=== PATIENT | female | born 1990 | race Caucasian/White ===

== ENCOUNTER 2024-08-09 14:30 | Outpatient (RCR) | payer MEDICAID, SELFPAY ==
--- NOTE | 2024-08-02 08:45 | PT.OIERPT ---
PT OP Initial Eval Patient Information Outpatient Physical Therapy Treatment Date: 08/02/24 Visit Reasons: BACK PAIN Medical Diagnosis: M51.36 Treatment Dx #1: LBP with L LE radiculopathy Start of Care: 08/02/24 Date of Onset: 4 yrs ago Smoking Status Smoking Status: Never smoker Initial Assessment Subjective: Pt is 33 yr old female who reports LBP that runs down the L LE worse at night that interrupts sleep and with bending and lifting her 2 yr old that weighs 36 lbs. PMH: none reported Imaging: MRI in EMR: L5-S1, L4-L5 2 mm central lumbar disc bulges Pt goal: for the pain to go away Objective: ? Trunk ArOM: ? B SB 50% of normal with pain ? Extension: 20% with pain around L4-5, L5-S1 ? Flexion: 1 from floor without LBP ? B rotation: 70% B ? TTP: moderate paraspinals L5-S1 worse on L side ? Neuro: L SLR: positive Assessment: Pt presents with trunk flexion sensitivity and overlying myofascial pain ? and TTP around L5-S1 consistent with ? lower lumbar disc bulge(s) with radiculopathy. Pt requires skilled therapy in order to decrease ? pain and improve sitting/standing tolerance and has fair rehab potential. Eval ?followed by HEP printout. 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 Ind with HEP ? 2. Improved sitting/standing tolerance to 30 minutes with <=4/10 LBP ? 3. Decreased lower paraspinal TTP from mod to min 4. Improved HH chore tolerance to at least 30 minutes with <=3/10 LBP and no ?increase in LE ssx ? Treatment Plan ?1. Manual therapy ? 2. Therex ? 3. Modalities as indicated, moist heat, ice, estim, mechanical traction Frequency and Duration: 1-2x a week for 12 visits plus evaluation Certification Dates: 08/02/24 to 10/29/24 Procedure Charges OP PT Eval Mod Complex 30 minutes: Yes
--- NOTE | 2024-08-09 16:16 | PT.ODAYNRPT ---
PT Outpatient Daily Note OP Daily Note Outpatient Physical Therapy Treatment Date: 08/09/24 Visit Reasons: BACK PAIN Subjective: Pt c/o low back pain, mention she has other comorbidities that she thinks might contribute to her symtpoms. Objective: Please see flow sheet for ther ex list. Assessment: Pt instructed on repeated lumbar extension in standing exercise, pt replicated with good technique given for HEP. Plan: Continue with POC. Length of Time (minutes) of Treatment: 30 Minutes Procedure Charges Therapeutic Exercise 30 minutes: Yes
== END 2024-08-09 23:59 | disposition home or self-care (01) ==
LOC: CPTX 14:30
PROVIDERS: PCP Nurse Practitioner Family; Referring Provider Nurse Practitioner Family; Visit Provider Nurse Practitioner Family
DX: M54.16 Radiculopathy, lumbar region (principal)
CPT/HCPCS: 97110; 97162

== ENCOUNTER 2024-09-02 13:07 | Outpatient (RCR) | payer MEDICAID, SELFPAY ==
--- NOTE | 2024-09-02 13:29 | PT.ODAYNRPT ---
PT Outpatient Daily Note OP Daily Note Outpatient Physical Therapy Treatment Date: 09/02/24 Visit Reasons: BACK PAIN Subjective: Less LBP since starting therapy Objective: See F/S for therex Assessment: Good response to trunk extension progression to relieve LBP Plan: Continue per POC Length of Time (minutes) of Treatment: 30 Minutes Procedure Charges Therapeutic Exercise 30 minutes: Yes
== END 2024-09-06 23:59 | disposition home or self-care (01) ==
LOC: CPTX 13:07
PROVIDERS: PCP Nurse Practitioner Family; Referring Provider Nurse Practitioner Family; Visit Provider Nurse Practitioner Family
DX: M54.16 Radiculopathy, lumbar region (principal)
CPT/HCPCS: 97110

== ENCOUNTER → 2024-12-16 | Outpatient (CLI) | payer MEDICAID, SELFPAY ==
--- NOTE | 2024-12-16 10:13 | XR_ITS ---
Examination: Knee, left 3 views Technique: Knee AP, lateral, oblique 3 views, standing Date and time of exam: December 16, 2024 1034 hours INDICATIONS: Left knee pain and swelling beginning 4 years ago. FINDINGS: No fracture or dislocation No arthritic change. No knee effusion IMPRESSION: Negative for osseous abnormality
== END | disposition home or self-care (01) ==
LOC: CDIM 10:02
PROVIDERS: PCP Nurse Practitioner Family; Referring Provider Chiropractor; Visit Provider Chiropractor
DX: M25.562 Pain in left knee (principal)
CPT/HCPCS: 73562

== ENCOUNTER → 2025-01-28 | Outpatient (CLI) | payer MEDICAID, SELFPAY ==
--- NOTE | 2025-01-28 15:00 | XR_ITS ---
Examination: MRI cervical spine without intravenous contrast Date and time of exam: January 28, 2025 1412 hours INDICATIONS: Low back pain for years radiating to the legs numbness in the legs, neck pain radiating to the arms numbness in the arms Technique: Multiple axial and sagittal sections of the cervical spine to been obtained. T2 weighted sagittal sections, TR 3, 270, TE 117 T1-weighted sagittal sections, TR 500, TE 11 T1-weighted axial sections, TR 607, TE 12, axial sections TR 18, TE 27 and T2 weighted transverse sections, TR 3920, TE 122. Findings: Adequate alignment cervical vertebral bodies No cervical fracture. Intact odontoid. Diffuse cervical disc desiccation. No localized enlargement cervical cord. C2-C3 no disc protrusion C3-C4 no disc protrusion C4-C5 no disc protrusion C5-C6 3 mm right paracentral osteophyte disc complex C6-C7 no disc protrusion C7-T1 no disc protrusion IMPRESSION: C5-C6 3 mm right paracentral osteophyte disc complex
--- NOTE | 2025-01-28 15:30 | XR_ITS ---
Examination: MRI lumbar spine without contrast Date and time of exam: January 28, 2025 1612 hours Comparison March 09, 2024 INDICATIONS: Low back pain for years radiating down the left leg Technique: Multiple MRI axial and sagittal sections lumbar spine. Sagittal T2-weighted images, TR 3500, TE 118 T1 weighted transverse sections, TR 688 T8.5, T2-weighted sagittal sections T1 weighted sagittal sections TR 621, TE 30 T2 axial sections, TR 4, 190, TE 84. Findings: Adequate alignment lumbar vertebral bodies No lumbar fracture Normal marrow signal lumbar vertebral bodies No spondylolisthesis L5-S1 no disc protrusion L4-L5 2 mm central lumbar disc bulges L3-L4 no disc protrusion L2-L3 no disc protrusion L1-L2 no disc protrusion IMPRESSION: L4-L5 2 mm central lumbar disc bulge
== END | disposition home or self-care (01) ==
PROVIDERS: PCP Nurse Practitioner Family; Referring Provider Nurse Practitioner Family; Visit Provider Nurse Practitioner Family
DX: M54.17 Radiculopathy, lumbosacral region (principal); M51.369 Other intervertebral disc degeneration, lumbar region without mention of lumbar back pain or lower extremity pain; M25.78 Osteophyte, vertebrae
CPT/HCPCS: 72141; 72148

== ENCOUNTER → 2025-01-29 | Outpatient (CLI) | payer MEDICAID, SELFPAY ==
--- NOTE | 2025-01-29 15:00 | XR_ITS ---
Examination: MRI thoracic spine without contrast. Date and time of exam: January 29, 2025 1526 hours INDICATIONS: Back pain for years Technique: Multiple sagittal and axial images of the thoracic spine have been obtained. T1 weighted localizer, sagittal T2 weighted images, TR 30-50, TE 148, T1 weighted sagittal images, TR 650, TE 14, T2-weighted transverse images, TR 6770, TE 142 Findings: Adequate alignment thoracic vertebral bodies Mild disc narrowing T5-T6, T6-T7 with, T5-T6 2 mm right paracentral disc bulge T6-T7 2 mm left paracentral disc bulge No impingement upon the thoracic cord No localized enlargement thoracic cord Impression: T5 C6 to 9 mm right paracentral disc bulge T6-T7 2 mm left paracentral disc bulge No significant impingement upon the thoracic cord
--- NOTE | 2025-01-29 15:30 | XR_ITS ---
Exam: MRI knee without contrast, left Date and time of exam: January 29, 2025 1555 hours INDICATIONS: Left knee swelling and pain beginning 4 months ago, unable to extend the knee Technique: Multiple axial, coronal, and sagittal sections on the knee have been obtained. T2-Weighted sagittal, fat-suppressed images, TR 3,500, TE 62, T2 weighted coronal fat-saturated images, TR 3,500, TE 62 Proton density sagittal sections, TR 1800, TE 31. T-1 weighted coronal images, TR 524, TE 13.0 Findings: Medial meniscus anterior horn intact. Medial meniscus, body meniscocapsular separation body of the medial meniscus. Posterior horn medial meniscus intact. Lateral meniscus anterior horn is intact Lateral meniscus, body is intact Posterior horn lateral meniscus is intact Anterior cruciate ligament moderate to high-grade sprain. Posterior cruciate ligament appears intact. Knee effusion is small. Quadriceps and patellar tendons appear intact. There is no evidence of tendinosis. Inflammatory change or fracture of Hoffa's fat pad is not seen. Medial patellar facet demonstrates mild thinning. Lateral patellar facet cartilage demonstrates mild thinning. Trochlear cartilage demonstrates mild thinning. Marrow signal adequate. Medial collateral ligament appears intact. Illiotibial band and fibular collateral ligament are intact. Biceps femoris tendons appear intact. Medial femoral condylar articular cartilage demonstrates mild thinning. Lateral femoral condylar articular cartilage demonstratesmild thinning. Tibial plateau cartilage demonstrates mild thinning. Impression: Meniscocapsular separation body of the medial meniscus Moderate to high-grade sprain anterior cruciate ligament
== END | disposition home or self-care (01) ==
PROVIDERS: PCP Nurse Practitioner Family; Referring Provider Nurse Practitioner Family; Visit Provider Nurse Practitioner Family
DX: M51.34 Other intervertebral disc degeneration, thoracic region (principal); M50.33 Other cervical disc degeneration, cervicothoracic region; S83.195A Other dislocation of left knee, initial encounter; S83.512A Sprain of anterior cruciate ligament of left knee, initial encounter; X58.XXXA Exposure to other specified factors, initial encounter
CPT/HCPCS: 72146; 73721

== ENCOUNTER 2025-04-25 06:50 | Day surgery (SDC) | payer MEDICAID, SELFPAY ==
[2025-04-24 10:31] VITALS: BMI 29.3
[2025-04-24 12:09] LABS: Basophils # (Auto) 0.0 Thou/mm3 (0.0-0.2); Basophils % (Auto) 1 % (0-2.5); Eosinophils # (Auto) 0.1 Thou/mm3 (0.0-0.5); Eosinophils % (Auto) 2 % (0-10); Hematocrit 34.5 % (36.0-46.0); Hemoglobin 11.4 g/dL (12.0-16.0); Immature Granulocytes Auto 0.01 Thou/mm3 (0.00-0.00); Lymphocytes # (Auto) 2.2 Thou/mm3 (1.0-4.8); Lymphocytes % (Auto) 36 % (10-50); Mean Corpuscular HGB Conc 33.0 g/dl (31.0-37.0); Mean Corpuscular Hemoglobin 25.6 pg (25.0-35.0); Mean Corpuscular Volume 77 fL (80-100); Monocytes # (Auto) 0.5 Thou/mm3 (0.0-0.8); Monocytes % (Auto) 9 % (0-12); Neutrophils # (Auto) 3.1 Thou/mm3 (1.8-7.7); Neutrophils % (Auto) 52 % (37-80); Nucleated Red Blood Cell # 0.00 Thou/mm3 (0.00-0.00); Nucleated Red Blood Cell % 0 /100 WBC (0); Platelet Count 281 Thou/mm3 (140-440); RDW Standard Deviation 41.1 fL (36.4-46.3); Red Blood Count 4.46 Miln/mm3 (4.00-5.20); White Blood Count 6.0 Thou/mm3 (3.6-11.0)
[2025-04-24 12:19] LABS: Anion Gap 11 (7-16); BUN/Creatinine Ratio 15 Ratio (12-20); Blood Urea Nitrogen 9 mg/dL (9-23); Calcium 9.1 mg/dL (8.3-10.6); Carbon Dioxide 23.7 mMol/L (20.0-31.0); Chloride 106 mMol/L (98-107); Creatinine (Component) 0.6 mg/dL (0.6-1.3); Estimated Creatinine Clearance 136.8 mL/min (>60); Glucose 97 mg/dL (74-106); INR 0.9 (0.9-1.3); Osmolality,Calculated 279 (275-295); Partial Thromboplastin Time 22.8 Seconds (22.0-36.0); Potassium 4.0 mMol/L (3.4-5.1); Prothrombin Time 9.9 Seconds (9.0-12.2); Sodium 141 mMol/L (136-145); eGFR > 60 See Note
--- NOTE | 2025-04-24 14:45 | SUR.PREOP ---
Pt's father and ride notified to bring pt at 0700 tomorrow for surgery. Pt did not answered.
[2025-04-25] VITALS (9 sets, daily range): BP systolic 103–127; BP diastolic 50–78; PULSE 73–88; RESP 13–20; TEMP 36.1–37; O2SAT 98–100; BMI 29.6
--- NOTE | 2025-04-25 07:24 | SUR.PREOP ---
Patient expressed gratitude for prayer before their procedure.
[2025-04-25] MEDS: RINGERS LACTATED 1000 ML 1,000 ML 20 ML IV (07:40)
--- NOTE | 2025-04-25 10:35 | SUR.PHASEI ---
1035: Pt. arrived with oral airway in place, vitals stable, breathing unlabored, no signs of distress, bilateral dorsalis pedis pulses strong and regular, cap refill to bilateral feet less than 3 seconds, dressing to left knee CDI, no active bleed noted, report received from MD Rodriguez and Tanya KRUEGER.
--- NOTE | 2025-04-25 10:44 | PD.SUROPNT ---
Date of Procedure 04/25/25 Pre Op Diagnosis 1. Torn medial meniscus left knee joint 2-4 lateral meniscus 3 DJD patellofemoral compartment 4 synovitis with medial plica Post Op Diagnosis Same Procedure 1. Partial medial meniscectomy 2. Partial lateral meniscectomy 3. Chondroplasty 4. Partial synovectomy including excision plica Findings Refer dictation Procedure Description The patient was given general endotracheal anesthesia. Once satisfactory anesthesia was achieved, tourniquet was placed on left upper thigh. Following that the part was thoroughly prepped and draped. After using Esmarch the tourniquet pressure was raised to 350 mmHg. A skin incision was made proximal to lateral tibial plateau and arthroscope was introduced in the usual fashion. Another a skin incision was made in suprapatellar pouch area and outlet was established. The findings were noted as below. In suprapatellar pouch area significant synovial tissue inflammation was present. Medial plica was present as well. The undersurface of patella showed grade 3 chondromalacia. The anterior femoral condyle showed grade 3 chondromalacia. Soft tissue impingement was present. The patellar tracking was checked and found to be good. The medial compartment showed grade 2/3 chondromalacia for medial tibial plateau and medial femoral condyle. The medial meniscus showed degeneration and tear of the anterior horn. Another skin incision was made proximal to medial tibial plateau and a probe was introduced and findings were confirmed. The anterior cruciate ligament was intact. The anterior drawer test was performed and found to be good. The lateral compartment showed intact lateral femoral condyle and tibial plateau. Lateral meniscus showed degeneration of the body and anterior horn. A shaver was introduced and shaving of the anterior horn of medial meniscus was performed. Soft tissue impingement was shaved off. Chondroplasty of the medial femoral condyle and medial tibial plateau was performed. The shaving of the body and anterior horn of lateral meniscus was done. The chondroplasty of the patella and and anterior femoral condyle was performed. The soft tissue impingement was shaved off. A partial synovectomy including excision of plica was performed. Copious amount of irrigation was used to irrigate the knee joint. All the debris were removed. 3-0 Prolene was used to close the wound. About 20 mL of quarter percent Marcaine along with 10 mg of Duramorph was injected. Patient tolerated procedure well. Estimated blood loss was about 1 mL. Prognosis in this case is fair to good. Patient was taken to the recovery room in good condition. Anesthesia GETA Pathology / specimen None Estimated Blood Loss 1 Surgeon Ahmet Staley MD Surgical Staff Operation Date: 04/25/25 09:15 Case Staff Anesthesiologist: Garfield Rodriguez
--- NOTE | 2025-04-25 11:00 | ESHP_ITS ---
RE: LOU ALBRIGHT : 1990 DATE OF ADMISSION: 04/25/2025 Patient came to my office on 04/24/2025 for detailed pre-op history and physical examination. HISTORY OF PRESENTING COMPLAINT: Patient presented to me with a history of pain, swelling, clicking and locking of the left knee joint. Pain is quite bad. Intensity of pain is 6-7 out of 10. Unable to sleep. Quality of life and activity of daily living is affected. PAST MEDICAL HISTORY: No history of diabetes mellitus, high blood pressure, asthma, seizures, chest pain. PAST SURGICAL HISTORY: Nil. DRUG HISTORY: Pain medication on and off. ALLERGIES: TO PENICILLIN. FAMILY HISTORY AND SOCIAL HISTORY: Patient denies smoking, drinking and is not working at this point. PHYSICAL EXAMINATION: General: Normal built lady. Vital Sign: Pulse 88 per minute, blood pressure 128/86. Neck: Soft, supple. No mass felt. Trachea is centrally placed. Cardiovascular System: First and second heart sound normal. No murmur heard. Respiratory System: Bilateral vesicular breath sounds. Chest clear. Abdomen: Soft. No mass felt. Bowel sounds present. Breast Examination. Not indicated in this case. Patient is advised to see her family physician for regular examination. Left Knee Examination: Revealed 1+ swelling and 2+ tenderness. Active range of motion 0 to 120 degrees of flexion. The alignment is neutral. Masoud's test is positive. Drawer test, Manjeet test negative. MRI scan confirmed torn meniscus, DJD at patellofemoral joint and also synovitis with plica. ASSESSMENT: Patient is symptomatic and quality of life and activity of daily living is affected, hence left knee arthroscopy was discussed and advised. Risks with anesthesia was explained and that includes but not limited to reaction to anesthetic agents, cardiac arrest, rarely it might be fatal. Risks with the operation includes infection and if that happens patient may need further surgical procedure. Other risks include delayed healing, wound dehiscence, etc. No guarantee is given regarding outcome of the procedure and/or relief of symptoms. Detailed discussion took place. Patient wanted to proceed with surgery. Surgery booked for 04/25/2025 in [facility]. DT: 10:51:25 TT: 10:58:00 Ref: [id number] - TID: [id number]
[2025-04-25] MEDS: MORPHINE SULF INJ 4 MG/ML VIAL 3 MG IV ×2 (11:05→11:26)
[2025-04-25] MEDS: ONDANSETRON INJ 2 MG/ML INJ 2 ML 4 MG IVP (11:26)
--- NOTE | 2025-04-25 11:45 | SUR.PHASEII ---
1145: Pt. AAOx4, vitals stable, breathing unlabored, no complaint of pain or nausea, dressing to left leg CDI, no active bleed noted, pt. tolerated sips of water well, pt. ambulated to wheelchair with steady gait and no assist, no complications. Gave discharge instructions to the pt. and her ride, both verbalized understanding and had no further questions. Pt. left with all personal belongings.
== END 2025-04-25 11:45 | disposition home or self-care (01) ==
PROVIDERS: PCP Nurse Practitioner Family; Referring Provider Orthopaedic Surgery; Visit Provider Orthopaedic Surgery
PROC: (CPT 29870; principal; 2025-04-25 09:15)
DX: S83.242A Other tear of medial meniscus, current injury, left knee, initial encounter (principal); M26.81 Anterior soft tissue impingement; M23.342 Other meniscus derangements, anterior horn of lateral meniscus, left knee; M65.862 Other synovitis and tenosynovitis, left lower leg; M17.12 Unilateral primary osteoarthritis, left knee; M22.42 Chondromalacia patellae, left knee; M67.52 Plica syndrome, left knee
CPT/HCPCS: 29880; 36415; 80048; 85025; 85610; 85730; A4217; A4649; J0131; J1100; J1885; J2250; J2270; J2405; J2704; J3010; J3373; J3490; J7120

== ENCOUNTER 2025-06-04 08:00 | Outpatient (RCR) | payer MEDICAID, SELFPAY ==
--- NOTE | 2025-05-22 09:50 | PT.OIERPT ---
PT OP Initial Eval Patient Information Outpatient Physical Therapy Treatment Date: 05/22/25 Visit Reasons: left knee pain Medical Diagnosis: Left Knee Pain Treatment Dx #1: Left Knee Pain Start of Care: 05/22/25 Date of Onset: 04/25/25 Smoking Status Smoking Status: Never smoker Initial Assessment Subjective: Pt is a 34 y/o female s/p left knee arthroscopic surgery 04/25/25. Pt still has knee pain (7/10) with activities. Pt has limitation with walking, standing, chores, self care, cooking, cleaning, and performing recreational activities. Objective: Left Knee AROM: -8 deg to 120 deg with pain Left Knee MMTs: grossly 3+/5 Left Hip MMTs: grossly 3/5 SLS: NT Knee Cap Mobility: hypomobile in all plane Assessment: Pt demonstrate left knee pain with mobility deficits s/p knee surgery leading to difficulty with ADLs. Pt will benefit from physical therapy to increase ROM, strength, and work on ambulation. 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 1) Increase left knee AROM WNL in 8 wks to be able to perform chores 2) Decrease knee pain to 2/10 in 8 wks to be able to stand more than 30 mins 3) Increase left knee MMTs grossly to 4/5 in 8 wks to be able to perform squatting activities 4) Increase left hip MMTs grossly to 4-/5 in 8 wks to be able to walk more than 30 mins 5) Increase SLS to 20 sec in 8 wks to be able to perform balance activities 6) Indep with HEP Treatment Plan 1) Manual Therapy 2) Therapeutic Activities 3) Therapeutic Exercises 4) Modalities (ice, heat) 5) Balance Training 6) Gait Training Frequency and Duration: 2 x wk for 8 wks Certification Dates: 05/22/25 to 08/22/25 Procedure Charges OP PT Eval Mod Complex 30 minutes: Yes
--- NOTE | 2025-05-28 08:58 | PT.ODAYNRPT ---
PT Outpatient Daily Note OP Daily Note Outpatient Physical Therapy Treatment Date: 05/28/25 Visit Reasons: left knee pain Subjective: Pt's knee still swollen and painful with prolonged standing or walking. Objective: Left Knee Flexion AAROM: 128 deg Assessment: Pt demonstrate improvement with knee flexion AAROM with less pain reported. Pt had difficulty completing SLB exercise due to pain Plan: Continue with PT Length of Time (minutes) of Treatment: 30 Minutes Procedure Charges Therapeutic Exercise 30 minutes: Yes
--- NOTE | 2025-05-30 09:26 | PT.ODAYNRPT ---
PT Outpatient Daily Note OP Daily Note Outpatient Physical Therapy Treatment Date: 05/30/25 Visit Reasons: left knee pain Subjective: Pt's knee continues to swell. Pt mentioned she can walk better now. Objective: Please see flow chart for list of ther ex performed Assessment: progressing with knee flexion AROM with less pain Plan: Continue with PT Length of Time (minutes) of Treatment: 30 Minutes Procedure Charges Therapeutic Exercise 30 minutes: Yes
--- NOTE | 2025-06-02 11:45 | PT.ODAYNRPT ---
PT Outpatient Daily Note OP Daily Note Outpatient Physical Therapy Treatment Date: 06/02/25 Visit Reasons: left knee pain Subjective: Pt's knee feels stiff. Pt still notice pain underneath the knee cap. Objective: Please see flow chart for list of ther ex performed Assessment: progressing with knee flexion AROM with less pain reported during heelslide. Plan: Continue with PT Length of Time (minutes) of Treatment: 30 Minutes Procedure Charges Therapeutic Exercise 30 minutes: Yes
--- NOTE | 2025-06-04 08:58 | PTNOTE_ITS ---
PT Outpatient Daily Note OP Daily Note Outpatient Physical Therapy Treatment Date: 06/04/25 Visit Reasons: left knee pain Subjective: Pt's knee is slowly feeling better. Pt notice a little stiffness this morning. Objective: Please see flow chart for list of ther ex performed Assessment: progressing to more closed chain due to less reported pain. Pt further demonst rate progression with knee flexion AROM with heelslide and no longer require strap to increase ROM Plan: Continue with PT Length of Time (minutes) of Treatment: 30 Minutes Procedure Charges Therapeutic Exercise 30 minutes: Yes
== END 2025-06-08 23:59 | disposition home or self-care (01) ==
LOC: CPTX 08:00
PROVIDERS: PCP Orthopaedic Surgery; Referring Provider Orthopaedic Surgery; Visit Provider Orthopaedic Surgery
DX: M25.562 Pain in left knee (principal); R26.2 Difficulty in walking, not elsewhere classified; Z98.890 Other specified postprocedural states
CPT/HCPCS: 97110; 97162

== ENCOUNTER 2025-07-07 08:30 | Outpatient (RCR) | payer MEDICAID, SELFPAY ==
--- NOTE | 2025-06-10 11:26 | PT.ODAYNRPT ---
PT Outpatient Daily Note OP Daily Note Outpatient Physical Therapy Treatment Date: 06/10/25 Visit Reasons: Left knee pain Subjective: Pt's knee is better but feels stiff due to the cold weather. Objective: Please see flow chart for list of ther ex performed Assessment: progressing with closed chain exercises and add YTB with side step and monster walk with slight fatigue in the hips reported Plan: Continue with PT Length of Time (minutes) of Treatment: 30 Minutes Procedure Charges Therapeutic Exercise 30 minutes: Yes
--- NOTE | 2025-06-12 09:14 | PT.ODAYNRPT ---
PT Outpatient Daily Note OP Daily Note Outpatient Physical Therapy Treatment Date: 06/12/25 Visit Reasons: Left knee pain Subjective: Pt's knee is stiff and hurts. Pt's son was hitting the knee last night. Objective: Please see flow chart for list of ther ex performed Assessment: able to complete instructed exercises today. Post ice helped with pain and soreness Plan: Continue with PT Length of Time (minutes) of Treatment: 30 Minutes Procedure Charges Therapeutic Exercise 30 minutes: Yes
--- NOTE | 2025-06-17 08:58 | PTNOTE_ITS ---
PT Outpatient Daily Note OP Daily Note Outpatient Physical Therapy Treatment Date: 06/17/25 Visit Reasons: Left knee pain Subjective: Pt is walking better. Pt feels that left LE pain related to her disc bulge. Objective: Please see flow chart for list of ther ex performed Assessment: progressing with closed chain exercises with more WB through left LE while perfo rming exercises Plan: Continue with PT Length of Time (minutes) of Treatment: 30 Minutes Procedure Charges Therapeutic Exercise 30 minutes: Yes
--- NOTE | 2025-06-27 08:44 | PT.ODAYNRPT ---
PT Outpatient Daily Note OP Daily Note Outpatient Physical Therapy Treatment Date: 06/27/25 Visit Reasons: Left knee pain Subjective: Pt knee continues to hurt and feels stiff. Pt has a follow up appt with surgeon in a few weeks. Objective: Please see flow chart for list of ther ex performed Assessment: progressing with closed chain exercises, however, minimal changes with knee pain. Plan: Continue with PT Length of Time (minutes) of Treatment: 30 Minutes Procedure Charges Therapeutic Exercise 30 minutes: Yes
--- NOTE | 2025-07-02 09:37 | PT.ODAYNRPT ---
PT Outpatient Daily Note OP Daily Note Outpatient Physical Therapy Treatment Date: 07/02/25 Visit Reasons: Left knee pain Subjective: Pt's knee is a little better, however, notice some stiffness in the knee this morning. Objective: Please see flow chart for list of ther ex performed Assessment: patient was able to progress with SLS without PEREIRA today and demonstrate good static balance with exercise. Plan: Continue with PT Length of Time (minutes) of Treatment: 30 Minutes Procedure Charges Therapeutic Exercise 30 minutes: Yes
--- NOTE | 2025-07-07 08:54 | PT.ODAYNRPT ---
PT Outpatient Daily Note OP Daily Note Outpatient Physical Therapy Treatment Date: 07/07/25 Visit Reasons: Left knee pain Subjective: Pt's knee feels better. Pt has a follow up appt with surgeon 07/25/25. Objective: Please see flow chart for list of ther ex performed Assessment: progressing with exercises; slight difficulty with SLS on airex due to imbalance. Plan: Continue with PT Length of Time (minutes) of Treatment: 30 Minutes Procedure Charges Therapeutic Exercise 30 minutes: Yes
== END 2025-07-09 23:59 | disposition home or self-care (01) ==
LOC: CPTX 08:30
PROVIDERS: PCP Orthopaedic Surgery; Referring Provider Orthopaedic Surgery; Visit Provider Orthopaedic Surgery
DX: M25.562 Pain in left knee (principal); R26.2 Difficulty in walking, not elsewhere classified; Z98.890 Other specified postprocedural states
CPT/HCPCS: 97110